=== PATIENT | female | born 1945 | race Caucasian/White ===

== ENCOUNTER 2017-02-25 13:10 | Emergency (ER) | payer MEDICARE, MEDICAID ==
[~2017-02-25] VITALS: Ht 157.5 cm; Wt 88.5 kg
[2017-02-25] MEDS ORDERED: TYLENOL EXTRA500 MG ORAL (14:24)
--- NOTE | 2017-02-25 16:06 | Diagnostic Imaging Report ---
Indications: Right knee pain Technique: 3 views right knee. Findings: Comparison: None No fracture, dislocation, joint space widening or effusion, lytic destruction, periosteal reaction , surrounding soft tissue swelling/foreign body/gas, or other acute changes are identified. Patellofemoral and knee joint space is narrowed with marginal osteophyte formation. Multilobulated sclerotic lesion in distal femoral diaphysis. Prominent arterial mural calcification. No other chronic change demonstrated. 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
[2017-02-25 18:31] VITALS: BP 111/77
--- NOTE | 2017-02-25 22:14 | Emergency Room Report ---
History of Present Illness General Chief Complaint: Lower Extremity Injury Source: Medical Record Present Illness HPI The patient is a 71-year-old female presenting for right knee pain. The patient lives in an assisted-living facility. The patient states that she fell onto the right knee from bed-level onto carpet. She denies hitting any other part of her body including her head. She denies any loss of consciousness. The pain is described as a 5/10 dull ache and does not radiate. Pain worse with touch and movement. She denies prior injury to the knee. She denies any other symptoms including nausea, vomiting, fever, chills, headaches, dizziness, chest pain, shortness of breath, numbness or tingling, rash Allergies: Coded Allergies: No Known Allergies (Unverified , 02/25/17) Patient History Past Medical History: see triage record Pertinent Family History: none Reviewed Nursing Documentation: PMH: Agreed, PSxH: Agreed Nursing Documentation-PMH Past Medical History: No History, Except For Hx Hypertension: Yes - Hypothyroidisim Review of Systems All Other Systems: negative except mentioned in HPI Physical Exam Vital Signs Date Time Temp Pulse Resp B/P Pulse Ox O2 Delivery O2 Flow Rate FiO2 02/25/17 13:08 98.8 92 18 118/90 94 Room Air Sp02 EP Interpretation: reviewed, normal General Appearance: no apparent distress, alert, GCS 15, non-toxic Head: normocephalic, atraumatic Eyes: bilateral eye PERRL, bilateral eye normal inspection ENT: hearing grossly normal, normal pharynx, no angioedema, normal voice Musculoskeletal: swelling, tender - TTP over the R anterior knee Neurologic: alert, oriented x3, responsive, motor strength/tone normal, sensory intact, speech normal Psychiatric: judgement/insight normal, memory normal, mood/affect normal, no suicidal/homicidal ideation Skin: normal color, no rash, warm/dry, well hydrated Lymphatic: no adenopathy Medical Decision Making PA Attestation Dr. georges is my supervising physician. Patient management was discussed with my supervising physician Diagnostic Impression: Primary Impression: Knee pain, right Qualified Codes: M25.561 - Pain in right knee ER Course The patient is a 71-year-old female presenting for right knee pain Ddx considered include but not limited to sprain/strain, fracture, contusion Physical exam: Vitals are within normal limits Right knee: There is tenderness to palpation over the anterior aspect with overlying swelling. No obvious deformity. No ecchymosis. Full active range of motion X-ray of the knee is unremarkable for acute findings To be transferred back to her assisted-living facility. 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 Last Vital Signs Date Time Temp Pulse Resp B/P Pulse Ox O2 Delivery O2 Flow Rate FiO2 02/25/17 18:31 88 16 111/77 98 Room Air 02/25/17 15:00 98.8 Status: improved Disposition: HOME, SELF-CARE Condition: Improved Scripts Acetaminophen* (TYLENOL EXTRA STRENGTH*) 500 Mg Tablet 500 MG ORAL Q8H Y for Prn Headache/Temp > 101, #30 TAB 0 Refills Prov: HAILEY MOCTEZUMA 02/25/17 Referrals: TAMMIE BENAVIDEZ (PCP) Patient Instructions: Knee Pain Additional Instructions: I discussed my findings with the patient. All questions and concerns have been answered. Treatment and medication compliance have been addressed. I advised the patient that they need to follow up with PMD in 3-5 days. Return to ED if pain remains or worsens, numbness or tingling occurs, new rash is noticed, fever is noticed, or if needed for any reason. Patient verbalized understanding of discharge instructions. HAILEY MOCTEZUMA Feb 25, 2017 22:14
== END 2017-02-25 18:34 | disposition home or self-care (01) ==
LOC: EDBD 13:10 → EMR 13:41
DX: M25.561 Pain in right knee (principal); M17.11 Unilateral primary osteoarthritis, right knee; I70.90 Unspecified atherosclerosis
CPT/HCPCS: 99283